=== PATIENT | male | born 1990 | race Caucasian/White ===

== ENCOUNTER 2017-03-22 09:16 | Day surgery (SDC) | payer BC, OTHER ==
[~2017-03-22] VITALS: Ht 172.7 cm; Wt 92.9 kg
[2017-03-22 09:39] VITALS: Ht 172.7 cm; Wt 92.9 kg
[2017-03-22 10:00] VITALS: BP 126/75; PULSE 73; RESP 24
[2017-03-22 11:19] VITALS: BP 107/60; PULSE 66; RESP 12
[2017-03-22] MEDS ORDERED: MIDAZOLAM 1 MG/ML 2 ML INJ ONE ×3 (11:43→11:44)
[2017-03-22] MEDS ORDERED: FENTAnyl 50 MCG/ML VIAL ONE (11:44)
--- NOTE | 2017-03-30 05:20 | GILP ---
DATE OF PROCEDURE: 03/22/2017 PROCEDURE PERFORMED: Colonoscopy with biopsy. PROCEDURE PERFORMED: Luis Caruso MD INDICATION: This 26-year-old male undergoing this procedure for left lower quadrant pain. He responded well to Cipro and Flagyl. The patient also had a CT scan done but he is not aware of the findings but he was told it was negative, and I did not get any report from the primary MD office. The purpose is to evaluate the colon and rule out diverticulosis or other etiology as the cause of his pain. The risks of the procedure, related complications, anesthetic risks and alternatives were discussed and informed consent was obtained. DESCRIPTION OF PROCEDURE: The patient was brought to the GI lab and sedated by me with Versed 6 mg, fentanyl 100 micrograms. After optimal sedation, digital examination was done which was normal. The scope was passed as much into the rectum, advanced through the sigmoid and descending colon all the way into the cecum, and finally into the terminal ileum. The terminal ileum was normal up to 2 feet. The rest of the colon appeared normal. There was a polyp identified in the rectum which was diminutive, successfully removed by jumbo biopsy forceps. Retroflexion done which was normal. The scope was straightened out and removed with good patient tolerance. IMPRESSION: 1. Diminutive polyp in the rectum, successfully removed. 2. Negative all the way into cecum. 3. Negative terminal ileum. 4. Clarity and cleanliness was good. PLAN: Stay on high-fiber diet. Dictated By: Luis Caruso MD /[email or web address] /Document#: [id number] ; Dr. Marybel Espinal
== END 2017-03-22 12:15 | disposition home or self-care (01) ==
LOC: GIL 09:16
PROVIDERS: ATTEND Internal Medicine Gastroenterology
DX: K62.1 Rectal polyp (principal); Z88.0 Allergy status to penicillin
CPT/HCPCS: 45380; 88305; J2250; J3010; Z7610